=== PATIENT | female | born 1960 | race Caucasian/White ===

== ENCOUNTER 2018-10-13 13:40 | Outpatient (CLI) | payer MEDICARE, OTHER ==
[~2018-10-13 13:40] MED LIST: ASPIRIN EC325 MG ORAL; BENADRYL25 MG ORAL; CRESTOR10 M1 ORAL; FLUOXETINE HCL20 MG ORAL; MONTELUKAST SOD10 MG ORAL; POTASSIUM40 MEQ/11 ORAL; PREDNISONE5 MG ORAL; QVAR 80MCG ORA1 PUFF INH; RANITIDINE HCL150 M1 ORAL; TRAZODONE HCL50 MG ORAL; VENTOLIN HFA18 GM INH; VISTARIL25 MG ORAL
[2018-10-13 14:18] VITALS: BP 125/81
--- NOTE | 2018-10-13 18:00 | Consultation ---
DATE OF CONSULTATION: 10/13/2018 CONSULTING PHYSICIAN: Pro Turner M.D. REFERRING PHYSICIAN: New Johnson M.D. CHIEF COMPLAINT: Hepatitis C. PAST MEDICAL HISTORY: 1. Hepatitis C. 2. History of alcohol abuse. 3. Asthma. 4. Bipolar disorder. 5. Stroke x3. PAST SURGICAL HISTORY: Tonsillectomy as a teen. MEDICATIONS: Please see medication reconciliation list. ALLERGIES: No known allergies. FAMILY HISTORY: No family history of GI malignancies. SOCIAL HISTORY: The patient is a former heavy alcohol user, but now is only drinking socially, also tobacco use. REVIEW OF SYSTEMS: A 10-point review of systems was performed and was positive for mild acid reflux. Per the patient, she is taking medication for it. Per the patient, last colonoscopy was 2 years ago. I do not have the report of it. PHYSICAL EXAMINATION: GENERAL: A well-developed female, in no acute distress. HEENT: Normocephalic and atraumatic. Sclerae anicteric. NECK: Supple. No obvious evidence of lymphadenopathy. CARDIOVASCULAR: Regular rate and rhythm. Plus S1 and S2. No obvious murmur. LUNGS: Clear to auscultation bilaterally. ABDOMEN: Positive bowel sounds. Soft and nontender. No rebound. No guarding. No peritoneal sign. EXTREMITIES: No cyanosis, no clubbing, no edema. ASSESSMENT AND PLAN: This is a 58-year-old female with multiple medical problems, who was referred to us for evaluation and treatment of hepatitis C. Plan to get a hep C virus quant and genotype. We are also going to order CBC, CMP, alpha fetoprotein, thyroid panel, and we are going to order abdominal ultrasound. After we obtain all those information, we will consider treating the patient with medication for hepatitis C. The patient was told to come back after all the above studies are done. I want to thank Dr. Johnson for this kind referral. Pro Turner M.D. DR: SUSAN JOB#: [id number] CC: New Johnson M.D.; Fax#: [phone]
== END 2018-10-13 15:40 | disposition home or self-care (01) ==
LOC: PAN 13:40
DX: B19.20 Unspecified viral hepatitis C without hepatic coma (principal); F31.9 Bipolar disorder, unspecified; Z86.73 Personal history of transient ischemic attack (TIA), and cerebral infarction without residual deficits
CPT/HCPCS: 99202

== ENCOUNTER → 2018-10-23 | Outpatient (CLI) | payer MEDICARE, OTHER ==
--- NOTE | 2018-10-23 11:09 | Diagnostic Imaging Report ---
Indication: Abdominal pain, history of hepatitis C Technique: Orellana-scale and duplex images of the upper abdomen were obtained Comparison: none Findings: Gallbladder is unremarkable, without stones, wall thickening, nor pericholecystic fluid. Sonographic Coyle's sign is negative. Common bile duct measures 3 mm in diameter. No intrahepatic biliary ductal dilatation. Liver demonstrates normal echogenicity, no focal abnormality. Portal vein and hepatic veins are patent. Pancreas is unremarkable. Spleen is unremarkable. Left kidney measures 9.3 cm in length. Right kidney measures 9.1 cm length. Both kidneys demonstrate normal echogenicity. There is no hydronephrosis. Left kidney demonstrates a 1 cm cyst adjacent to the renal sinus . Right kidney demonstrates some thinning of the cortex. Abdominal aorta is partially obscured by bowel gas, visualized portions are non-aneurysmal . Impression: No acute abnormality. Negative for gallstones or dilated bile ducts Mild thinning of the right renal cortex, nonspecific Incidental findings small left renal cyst Note inability to visualize portions of the abdominal aorta
== END | disposition home or self-care (01) ==
LOC: ULS 10:04
DX: R10.9 Unspecified abdominal pain (principal); Z86.19 Personal history of other infectious and parasitic diseases; N28.1 Cyst of kidney, acquired
CPT/HCPCS: 76700

== ENCOUNTER 2018-11-19 13:39 | Outpatient (CLI) | payer MEDICARE, OTHER ==
--- NOTE | 2018-11-19 14:23 | General Progress Note ---
Assessment/Plan Assessment/Plan: 1. Hepatitis C. 2. History of alcohol abuse. 3. Asthma. 4. Bipolar disorder. 5. Stroke x3. us >> no cirrhosis hep C genotype 3 start treatment for 12 weeks RTC 6 months Subjective ROS Limited/Unobtainable: Yes Allergies: Coded Allergies: No Known Allergies (Unverified , 08/03/12) Objective General Appearance: alert EENT: normal ENT inspection Neck: supple Cardiovascular: normal rate Respiratory/Chest: decreased breath sounds Abdomen: normal bowel sounds, non tender, soft Extremities: non-tender Pro Turner MD Nov 19, 2018 14:23
[2018-11-19 15:31] VITALS: BP 134/86
== END 2018-11-19 15:39 | disposition home or self-care (01) ==
LOC: PAN 13:39
DX: B19.20 Unspecified viral hepatitis C without hepatic coma (principal); F31.9 Bipolar disorder, unspecified; Z86.73 Personal history of transient ischemic attack (TIA), and cerebral infarction without residual deficits